=== PATIENT | male | born 1995 | race Caucasian/White ===

== ENCOUNTER 2023-11-16 02:27 | Emergency (ER) | payer OTHER ==
[~2023-11-16] VITALS: Ht 180.3 cm; Wt 86.2 kg
[2023-11-16] MEDS ORDERED: Acetaminophen 325 MG TABLET PO ONE (05:20)
[2023-11-16] MEDS ORDERED: Amoxicillin/Clavulanate K 875 MG Tab PO ONE (05:20)
[2023-11-16] MEDS ORDERED: Ketorolac Tromethamine 30mg Vial IV ONE (05:20)
[2023-11-16] MEDS ORDERED: AMOCLA875 PO (05:22)
[2023-11-16] MEDS ORDERED: Ketorolac Tromethamine 15mg Vial IM ONE (05:25)
== END 2023-11-16 03:36 | disposition home or self-care (01) ==
LOC: ER 02:27
DX: K04.7 Periapical abscess without sinus (principal); F17.290 Nicotine dependence, other tobacco product, uncomplicated
CPT/HCPCS: 96372; 99282-25; A9270; J1885